=== PATIENT | female | born 1970 | race Caucasian/White ===

== ENCOUNTER 2020-09-01 11:30 | Outpatient (REF) | payer MEDICARE, SELFPAY ==
[2020-09-01 14:03] LABS: Estimated Average Glucose 134 mg/dL; Hemoglobin A1c % 6.3 %
[2020-09-01 14:09] LABS: Creatinine Urine 205.65 mg/dL; Microalbum/Creatinine Ratio Ur 36.4 ug/mg cr
[2020-09-01 14:11] LABS: Alanine Aminotransferase 35 U/L (0-31); Albumin Level 4.3 g/dL (3.5-5.0); Alkaline Phosphatase 72 U/L (39-117); Anion Gap 12 (12-20); Aspartate Amino Transferase 19 U/L (5-31); Bilirubin Total 0.4 mg/dL (0.0-1.0); Blood Urea Nitrogen 13 mg/dL (9-16); Calcium 9.2 mg/dL (8.4-10.2); Carbon Dioxide 26 mmol/L (22-29); Chloride 105 mmol/L (96-108); Cholesterol 186 mg/dL; Estimated Glomerular Filt Rate > 60; Glucose Fasting 94 mg/dL (60-99); HDL Cholesterol 40 mg/dL; LDL Cholesterol Calculated 116 mg/dl; Potassium 4.9 mmol/L (3.3-5.1); Sodium 138 mmol/L (135-145); Total Protein 7.4 g/dL (6.5-8.0); Triglycerides 153 mg/dL
[2020-09-01 14:31] LABS: TSH reflex Free T4 3.59 uIU/mL (0.32-4.0)
== END 2020-09-01 11:31 | disposition home or self-care (01) ==
LOC: HO.HMGCLDS 11:30
PROVIDERS: PCP Internal Medicine; Visit Provider Internal Medicine
DX: E03.8 Other specified hypothyroidism (principal); E13.9 Other specified diabetes mellitus without complications; E66.9 Obesity, unspecified; E78.9 Disorder of lipoprotein metabolism, unspecified; I10 Essential (primary) hypertension
CPT/HCPCS: 36415; 80053; 80061; 82043; 83036; 84443

== ENCOUNTER → 2022-04-26 13:58 | Outpatient (BNVA) | payer OTHER, SELFPAY | PROVIDERS: PCP Internal Medicine; Visit Provider Psychiatry & Neurology Neurology | DX: Z13.89 Encounter for screening for other disorder (principal) ==

== ENCOUNTER → 2022-05-12 10:49 | Outpatient (REF) | payer OTHER, SELFPAY | LOC: HO.SL 10:49 | PROVIDERS: PCP Internal Medicine; Visit Provider Psychiatry & Neurology Neurology | DX: Z13.89 Encounter for screening for other disorder (principal) ==

== ENCOUNTER 2022-09-07 07:58 | Outpatient (REF) | payer OTHER, SELFPAY ==
--- NOTE | ~2022-09-07 | MR_ITS ---
EXAMINATION: MR BRAIN WITH AND WITHOUT CONTRAST MR CERVICAL SPINE WITH/WITHOUT CONTRAST CLINICAL INFORMATION: MS COMPARISON: MRI brain and cervical spine 03/28/2017 TECHNIQUE: MRI of the brain and cervical spine was obtained using routine sequences with and without contrast. Intravenous contrast: Gadavist Gadavist mL. FINDINGS: BRAIN: While the overall significant burden of demyelinating disease throughout the supratentorial brain parenchyma appears stable there is a 5 mm somewhat ovoid region of enhancement within the left centrum semiovale suspicious for a focus of active demyelination (image 20, series 21). Redemonstration corresponding T1 hypointense signal associated with the majority of the chronic demyelinating plaques. Redemonstrated apparent asymmetric T2 hyperintensity within the left aspect of the optic chiasm which may reflect sequelae of prior optic neuritis, noting limited assessment on this nondedicated examination. Multiple posterior fossa T2 hyperintense lesions are again seen with a new lesion in the left mohit (image 8, series 9). Stable moderate global cerebral volume loss and diffuse marked thinning of the corpus callosum. Stable mild cerebellar atrophy. No acute infarct. No acute intracranial hemorrhage or extra-axial fluid collection. No significant mass effect or herniation pattern. Normal enhancement of the dural venous sinuses. Normal appearance of the intracranial arterial flow voids. Normal appearance of the midline structures. The orbits are grossly unremarkable. The paranasal sinuses and mastoids are well aerated. Small volume adenoidal tonsillar tissue within the midline nasopharynx. Normal marrow signal. CERVICAL SPINE: There is a new short segment demyelinating plaque within the dorsal/central cord at C2-C3 which may be slightly expansile. Motion artifact limits assessment for additional cord signal abnormality elsewhere and apparent intramedullary T2 hyperintensity in the left cord at C4 and dorsal cord at T1 may be artifactual in etiology. No intramedullary enhancement suggest active demyelination. No leptomeningeal enhancement within limitations of motion artifact. The craniocervical junction is intact. Straightening of the normal cervical lordosis. There is no significant spondylolisthesis. Vertebral body heights are maintained. There is no suspicious enhancing osseous lesion. Multilevel disc desiccation with preserved disc height. There are multilevel degenerative changes with level by level detail as follows: C2-C3: Minor uncovertebral spurring and mild bilateral facet hypertrophy. No spinal canal or neural foraminal narrowing. C3-C4: Shallow central disc protrusion with minor uncovertebral spurring and mild bilateral facet hypertrophy. Stable mild spinal canal narrowing and contact along the ventral midline cord. Stable minimal right without left neural foraminal encroachment. C4-C5: Disc osteophyte complex with increased size of superimposed central disc protrusion, minor uncovertebral spurring and mild bilateral facet hypertrophy. Increased mild spinal canal narrowing and ventral cord indentation. No neural foraminal stenosis. C5-C6: Disc osteophyte complex with bilateral uncovertebral joint hypertrophy and mild bilateral facet hypertrophy. Stable mild spinal canal and mild left greater than right neural foraminal narrowing. C6-C7: Annular disc bulge with left greater than right uncovertebral joint hypertrophy and mild bilateral facet hypertrophy. No spinal canal stenosis. Stable mild bilateral neural foraminal encroachment. C7-T1: No spinal canal or neural foraminal stenosis. No epidural fluid collection, mass, or hematoma. No significant abnormalities of the paraspinal musculature. The flow voids of the major cervical vessels are maintained. Retropharyngeal course of the bilateral internal carotid arteries. No demonstrated abnormalities in the visualized neck. MR/MR cervical spine wo/w con IMPRESSION: 1. While the overall significant burden of demyelinating disease throughout the supratentorial brain parenchyma appears stable there is a 5 mm somewhat ovoid region of enhancement within the left centrum semiovale suspicious for a focus of active demyelination. Mildly progressed infratentorial demyelinating disease. 2. Redemonstrated apparent asymmetric T2 hyperintensity within the left aspect of the optic chiasm which may reflect sequelae of prior optic neuritis, noting limited assessment on this nondedicated examination. 3. New possibly slightly expansile demyelinating plaque at C2-C3. No intramedullary enhancement suggest active demyelination. Additional new apparent areas of intramedullary signal abnormality in the cervicothoracic cord may be artifactual in etiology. 4. Multilevel cervical spondylosis with increased size of a central disc protrusion at C4-C5 resulting in increased mild spinal canal stenosis and ventral cord indentation.
== END 2022-09-07 07:59 | disposition home or self-care (01) ==
LOC: HO.MRI 07:58
PROVIDERS: PCP Internal Medicine; Visit Provider Psychiatry & Neurology Neurology
DX: G35 Multiple sclerosis (principal)
CPT/HCPCS: 70553; 72156; A9585

== ENCOUNTER → 2022-09-22 10:41 | Outpatient (BNVA) | payer OTHER, SELFPAY | PROVIDERS: PCP Internal Medicine; Visit Provider Psychiatry & Neurology Neurology ==

== ENCOUNTER 2022-09-26 13:27 | Outpatient (REF) | payer MEDICARE, MEDICAID, SELFPAY | END 2022-09-26 13:28 | disposition home or self-care (01) | LOC: HO.MDS 13:27 | PROVIDERS: Visit Provider Psychiatry & Neurology Neurology | DX: G35 Multiple sclerosis (principal) | CPT/HCPCS: 96374; J2930 ==

== ENCOUNTER 2022-09-27 10:18 | Outpatient (REF) | payer MEDICARE, MEDICAID, SELFPAY | END 2022-09-27 10:19 | disposition home or self-care (01) | LOC: HO.MDS 10:18 | PROVIDERS: Visit Provider Psychiatry & Neurology Neurology | DX: G35 Multiple sclerosis (principal) | CPT/HCPCS: 96365; J2930 ==

== ENCOUNTER 2022-09-28 07:55 | Outpatient (REF) | payer MEDICARE, MEDICAID, SELFPAY | END 2022-09-28 07:56 | disposition home or self-care (01) | LOC: HO.MDS 07:55 | PROVIDERS: Visit Provider Psychiatry & Neurology Neurology | DX: G35 Multiple sclerosis (principal) | CPT/HCPCS: 96365; J2930 ==

== ENCOUNTER 2022-09-29 06:26 | Outpatient (REF) | payer MEDICARE, MEDICAID, SELFPAY | END 2022-09-29 06:27 | disposition home or self-care (01) | LOC: HO.MDS 06:26 | PROVIDERS: Visit Provider Psychiatry & Neurology Neurology | DX: G35 Multiple sclerosis (principal) | CPT/HCPCS: 96365; J2930 ==

== ENCOUNTER 2022-09-30 06:26 | Outpatient (REF) | payer MEDICARE, MEDICAID, SELFPAY | END 2022-09-30 06:27 | disposition home or self-care (01) | LOC: HO.MDS 06:26 | PROVIDERS: Visit Provider Psychiatry & Neurology Neurology | DX: G35 Multiple sclerosis (principal) | CPT/HCPCS: 96365; J2930 ==

== ENCOUNTER 2022-10-10 11:05 | Outpatient (AMB) | payer MEDICARE, SELFPAY ==
[2022-10-10 11:08] VITALS: BP 140/92; PULSE 84; O2SAT 98; BMI 38.6
--- NOTE | 2022-10-10 11:08 | MHC.OFFVIS ---
Intake Vital Signs 10/10/22 11:08 Height 5 ft 4 in Weight 225 lb BMI 38.6 BP 140/92 H Blood Pressure Location Rt brachial Position Sitting Pulse 84 Pulse Source Pulse Oximeter Pulse Oximetry (%) 98 Oxygen Delivery Method Room Air Intake Visit Reasons: f/u appointment -missed last appt Intake Note: Pt presents today for a follow up appt. Pt states her balance is all over the map . She states she is very tired due to her not sleeping well during the night. Pt states she only gets about 5 hours of sleep a night. She states she is very depressed as well. 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 she reports her balance is still off . SHe did not go to her appointments at [facility]. Previous History-she was diagnosed with Multiple sclerosis by Dr. Sharp in 2005. She had left leg weakness for 2 days - Brain MRI showed demyelinating changes. she was started copaxone . she was seen by a neurologist in [place] in 2014.she stopped copaxone in 2014 due to financial difficulties. Her history is unclear about the episodes. she has h/o vertigo , diplopia. she reports weakness, numbness , tingling. she has trouble falling asleep, staying asleep, hypersomnia. In the past she had some urinary issues. Her balance is poor and she walks with a cane. Her last MRI was more than 2 years ago [facility] Medical History Cervical spondylosis Hypersomnia Insomnia Surgical History History of section Family History Father No problems noted. Mother Lung cancer Family/Other Multilevel scoliosis Other Mental health disorder Social History Housing: House Alcohol intake: never Patient Tobacco Use Status: Never used Tobacco Second Hand Smoke Exposure: No Current occupational status: disabled Cognitive needs: No Hearing needs: No Vision needs: No Physical Exam Vital Signs: Last Vital Signs Pulse 84 10/10/22 11:08 BP 140/92 H 10/10/22 11:08 Pulse Ox 98 10/10/22 11:08 Oxygen Delivery Method Room Air 10/10/22 11:08 BMI result Body Mass Index 38.6 Const General: cooperative and in distress Orientation/consciousness: patient oriented x3 Eyes Pupils: Equal, round and reactive pupils present Neuro Other: normal speech General: patient oriented x3 Cranial nerves: Yes Facial sensation intact/muscles of mastication intact, Yes Equal, round and reactive pupils present, Yes Bilaterally intact EOM present, Yes Nystagmus not present, Yes Normal facial strength present and Yes Midline tongue present Cognition (Neuro): normal cognition Gait exam (Neuro): Ataxic gait present Motor exam (neuro): Normal motor muscle tone present throughout Deep tendon reflexes (DTR's): Right triceps reflex intensity grade: 2+, Left triceps reflex intensity grade: 2+, Rt Biceps (C5, C6): 2+, Left biceps reflex intensity grade: 2+, Right brachioradialis reflex intensity grade: 2+, Left brachioradialis reflex intensity grade: 2+, Right patellar reflex intensity grade: 2+ and Left patellar reflex intensity grade: 2+ Coordination: [id number] test normal Psych Appearance: grossly normal Assessment & Plan Assessment & Plan (1) Multiple sclerosis: Code(s): G35 - Multiple sclerosis (2) Insomnia: Code(s): G47.00 - Insomnia, unspecified (3) Hypersomnia: Code(s): G47.10 - Hypersomnia, unspecified (4) Cervical spondylosis: Code(s): M47.812 - Spondylosis without myelopathy or radiculopathy, cervical region Plan MRI C spine and Brain reviewed with patient I will start her on aubagio 7 mg qd for 4 weeks and then increase it to 14 mg qd [facility] in [place] for further management of MS. Home sleep test results Medications: New teriflunomide (Aubagio) 7 mg PO DAILY 30 tabs 0RF Coding Level of Care Code Est Pt Level 4 (25495) Diagnoses Multiple sclerosis G35 Insomnia G47.00 Hypersomnia G47.10 Cervical spondylosis M47.812
== END 2022-10-10 11:41 | disposition home or self-care (01) ==
PROVIDERS: PCP Internal Medicine; Visit Provider Psychiatry & Neurology Neurology
DX: G35 Multiple sclerosis (principal); G47.00 Insomnia, unspecified; G47.10 Hypersomnia, unspecified; M47.812 Spondylosis without myelopathy or radiculopathy, cervical region
CPT/HCPCS: 99214

== ENCOUNTER → 2022-10-10 11:05 | Outpatient (BNVA) | payer MEDICARE, SELFPAY | PROVIDERS: PCP Internal Medicine; Visit Provider Psychiatry & Neurology Neurology | DX: G35 Multiple sclerosis (principal); G47.00 Insomnia, unspecified; G47.10 Hypersomnia, unspecified; M47.812 Spondylosis without myelopathy or radiculopathy, cervical region | CPT/HCPCS: 99212 ==

== ENCOUNTER 2023-12-14 14:03 | Outpatient (AMB) | payer MEDICARE, SELFPAY ==
--- NOTE | 2023-12-14 14:16 | AM.OFFWIN_ITS ---
Intake Vital Signs 12/14/23 14:22 Height 5 ft 3 in Weight 232 lb BMI 41.1 BP 122/84 Blood Pressure Location Lt brachial Position Sitting Pulse 62 Pulse Source Pulse Oximeter Temp 98.8 F Temp Source Oral Pulse Oximetry (%) 98 Oxygen Delivery Method Room Air Intake Visit Reasons: EP cough, fever, congestion Intake Note: Patient here for cough, congestion and fevers which started about 2 days ago. Patient Tobacco Use Status: Never used Tobacco Allergies No Known Allergies Allergy (Verified 12/14/23 14:23) Do you need a note to return to daycare/school/sports/work: No HPI HPI Comments History of Present Illness Details This is a 53-year-old female with a past medical history of multiple sclerosis presenting for evaluation of cough, sinus congestion, sore throat and subjective fevers that she has had for the past 2 days. Patient denies having any otalgia, shortness for breath, chest pain or abdominal pain. Patient has been taking Motrin [id number] for relief of her symptoms. Additionally, she denies having any sick contacts. [facility] Medical History Cervical spondylosis Hypersomnia Insomnia Surgical History History of section Family History Father No problems noted. Mother Lung cancer Family/Other Multilevel scoliosis Other Mental health disorder Social History Housing: House Alcohol intake: never Patient Tobacco Use Status: Never used Tobacco Second Hand Smoke Exposure: No Current occupational status: disabled Cognitive needs: No Hearing needs: No Vision needs: No Review of Systems Const Reports as per HPI, Denies chills, Reports fatigue and Reports fever(s) (Subjective) Eyes Reports no additional complaints ENT Denies dizziness, Denies otalgia, Reports nasal congestion, Denies sinus pain, Reports sinus pressure, Reports sore throat and Denies tongue swelling Card Reports no additional complaints and Denies dyspnea Resp Denies chest congestion, Reports cough, Denies pain with cough and Denies dyspnea GI Reports no additional complaints Reports no additional complaints Musc Reports myalgias Skin/Breast Reports system reviewed and no additional complaints, except as documented Neuro Reports no additional complaints and Denies dizziness Psych Reports no additional complaints Endo Reports fatigue Luis Miguel/Lymph Reports no additional complaints Aller/Immun Denies tongue swelling Physical Exam Vital Signs: Last Vital Signs Temp 98.8 F 12/14/23 14:22 Pulse 62 12/14/23 14:22 BP 122/84 12/14/23 14:22 Pulse Ox 98 12/14/23 14:22 Oxygen Delivery Method Room Air 12/14/23 14:22 BMI result Body Mass Index 41.1 Patient is afebrile. Const General: cooperative, healthy appearing, comfortable, no acute distress, well developed, alert and awake Nutritional Appearance: overweight Orientation/consciousness: patient oriented x3 Limitations: no limitations HEENT Head: Yes normal to inspection and Yes normocephalic Ears: hearing grossly normal bilaterally, external ears normal, TM's normal bilaterally and EAC's normal General nose exam: Normal external nose present Face and sinus: Yes normal facial exam and No sinus tenderness Mouth: Normal oral and palatal mucosa present and oropharynx normal Throat: Yes posterior oropharynx normal Eyes General: appearance normal, both eyes and all related structures Visual Wren: normal visual wren by confrontation Alignment and Position: alignment normal Periorbital: periorbital findings normal Eyelids: Yes eyelids normal Conjunctivae: conjunctivae normal Sclerae: sclerae normal Corneas: corneas normal Pupils: Equal, round and reactive pupils present EOM: EOMs intact bilaterally Neck Lymphatic: no lymphadenopathy noted Resp Effort & Inspection: normal respiratory effort, able to speak in complete sentences, abnormal respiratory pattern, no cough and no respiratory distress Auscultation: clear to auscultation bilaterally Cardio Rate: regular rate Rhythm: regular rhythm Skin General skin exam: no rashes or lesions noted Neuro General: patient oriented x3 Cranial nerves: Yes Equal, round and reactive pupils present Psych Appearance: grossly normal Mental Status: mental status grossly normal Insight: Good insight present (Psych) Judgement: Good judgement present (Psych) Assessment & Plan Assessment & Plan (1) Acute upper respiratory infection: Comment: Patient is afebrile and is not hypoxic. Chest x-ray will be deferred at this time. SARS testing is initiated and results are pending. Code(s): J06.9 - Acute upper respiratory infection, unspecified Plan: Tylenol or ibuprofen as needed for any fevers that recur as well as myalgias. Patient is encouraged to stay very well hydrated upon returning home. Orders: Orders SARS-CoV2/FLU/RSV Today J06.9 - Acute upper respiratory infection, unspecified Coding Level of Care Code Est Pt Level 3 (54969) Diagnoses Acute upper respiratory infection J06.9 Time Spent (min) 20
[2023-12-14 14:22] VITALS: BP 122/84; PULSE 62; TEMP 37.1; O2SAT 98; BMI 41.1
== END 2023-12-14 14:41 | disposition home or self-care (01) ==
PROVIDERS: PCP Internal Medicine; Visit Provider Physician Assistant
DX: J06.9 Acute upper respiratory infection, unspecified (principal)

== ENCOUNTER 2023-12-14 14:03 | Outpatient (REF) | payer MEDICARE, SELFPAY ==
[2023-12-14 18:51] LABS: Influenza A PCR NEGATIVE (Negative); Influenza B PCR NEGATIVE (Negative); Resp Syncy Virus RNA Qual PCR NEGATIVE (Negative); SARS COV2 PCR INHOUSE NEGATIVE (Negative)
== END 2023-12-14 14:04 | disposition home or self-care (01) ==
LOC: HO.LAB 14:03
PROVIDERS: PCP Internal Medicine; Visit Provider Physician Assistant
DX: J06.9 Acute upper respiratory infection, unspecified (principal)
CPT/HCPCS: 0241U; 99212

== ENCOUNTER 2024-03-07 11:27 | Emergency (ER) | payer MEDICARE, SELFPAY ==
--- NOTE | ~2024-03-07 | CT_ITS ---
EXAMINATION: CT HEAD WITHOUT CONTRAST CLINICAL INFORMATION: Left-sided weakness, history of MS. COMPARISON: No prior CT exam. Correlation made with numerous prior brain MRIs, most recently 08/08/2022. TECHNIQUE: Contiguous axial imaging was performed from the skull base to vertex without intravenous administration of contrast. This CT examination was performed using dose optimization techniques as appropriate, variously including the following: *Automated exposure control *Adjustment of mA and/or kV according to patient size (this includes techniques or standardized protocols for targeted exams where dose is matched to indication/reason for exam; i.e. extremities or head) *Use of iterative reconstruction technique FINDINGS: There is no evidence of intracranial hemorrhage or extra-axial fluid collection. There is no mass effect, or edema. No CT evidence of acute territorial infarct. Ventricles, sulci, and cisterns are diffusely prominent, reflecting age-related advanced cerebral and cerebellar atrophy. No hydrocephalus. No midline shift. There is diffuse atrophy of the corpus callosum. There is atrophy of the mohit and midbrain. Extensive predominantly periventricular patchy and confluent white matter hypodensities, in keeping with patient's known demyelination. Distribution appears similar to the most recent MR. Partial empty sella noted. Mild atheromatous calcification of the bilateral carotid siphons. Globes and orbital contents image normally. No extracranial soft tissue abnormalities. The paranasal sinuses, mastoid air cells, and tympanic cavities are normally aerated. No suspicious bony abnormalities. CT/CT head/brain wo IV con IMPRESSION: 1. No acute intracranial abnormalities. 2. Stable chronic findings as discussed, consistent with the patient's known demyelinating disease. 3. Age advanced cerebral, callosal, and posterior fossa atrophy. Electronically signed by: Gerhard Khalil MD 03/07/2024 01:47 PM [facility]
[2024-03-07 12:36] VITALS: BP 200/99; PULSE 88; RESP 18; TEMP 36.4; O2SAT 96; BMI 27.5
--- NOTE | 2024-03-07 12:38 | ED.GENADULT ---
HPI - General Adult General Stated complaint: l sided weakness Related Data Allergies Allergy/AdvReac Type Severity Reaction Status Date / Time No Known Allergies Allergy Verified 03/07/24 12:43 [facility] Past Medical History Medical History Cervical spondylosis Hypersomnia Insomnia Surgical History History of section Family History Family History Father No problems noted. Mother Lung cancer Family/Other Multilevel scoliosis Other Mental health disorder Social History Social History Housing: House Alcohol intake: never Patient Tobacco Use Status: Never used Tobacco Second Hand Smoke Exposure: No Current occupational status: disabled Cognitive needs: No Hearing needs: No Vision needs: No Course Course Course Narrative: RME, this is a rapid medical exam performed by Rubin Doherty please refer to primary provider for complete H&P- 53-year-old female with past medical history significant for multiple sclerosis with chronic left-sided weakness presents for evaluation of worsening left-sided weakness. Patient states that her symptoms have been worsening over last 3 days she reports mild slurred speech. She does have mild dysarthria on exam. She recently she had a new medication called Kesimpta. Clinically she has an NIH stroke score of 1 due to dysarthria. She was greater than 72 hours since the onset of her symptoms, a stroke alert will not be called but I will still order a CT scan of her head and labs. Clinically MS exacerbation is a much more likely diagnosis Discharge Plan Discharge Print Language: Trinidadian
[2024-03-07 14:08] LABS: MANUAL DIFF FLAG NO
[2024-03-07 14:09] LABS: Basophils Percent Auto 0.3 % (0-2); Eosinophils Absolute Auto 0.1 X10*3/uL (0.0-0.4); Eosinophils Percent Auto 0.8 % (0-4); Hematocrit 36.7 % (37.0-47.0); Hemoglobin 12.2 g/dl (12.0-16.0); Imm Gran Abs Auto 0.03 X10*3/uL (0.00-0.03); Imm Gran Pct Auto 0.3 % (0.0-0.4); Lymphocytes Absolute Auto 2.3 X10*3/uL (1.2-4.9); Lymphocytes Percent Auto 25.9 % (20-40); Mean Corpuscular HGB Conc 33.2 g/dl (31.0-35.0); Mean Corpuscular Hemoglobin 26.8 pg (27.0-33.0); Mean Corpuscular Volume 80.7 fL (80.0-98.0); Mean Platelet Volume 10.9 fL (9.4-12.3); Monocytes Absolute Auto 0.4 X10*3/uL (0.1-1.2); Monocytes Percent Auto 4.7 % (2-11); Platelet Count 266 X10*3/uL (160-400); Red Blood Count 4.55 X10*6/uL (4.20-5.50); Red Cell Distribution Width 14.9 % (11.0-16.0); White Blood Count 8.9 X10*3/uL (4.8-10.8)
[2024-03-07 14:17] LABS: Partial Thromboplastin Time 31.6 SEC (26.0-36.8)
[2024-03-07 14:25] LABS: Alkaline Phosphatase 83 U/L (39-117); Anion Gap 8 (12-20); Aspartate Amino Transferase 31 U/L (5-31); Bilirubin Total 0.3 mg/dL (0.0-1.0); Blood Urea Nitrogen 9 mg/dL (9-16); Calcium 9.1 mg/dL (8.4-10.2); Carbon Dioxide 30 mmol/L (22-29); Chloride 110 mmol/L (96-108); Estimated Glomerular Filt Rate > 60; Glucose Random 114 mg/dL (60-115); Lipase 21 U/L (8-78); Potassium 3.5 mmol/L (3.3-5.1); Sodium 144 mmol/L (135-145); Total Protein 7.3 g/dL (6.5-8.0)
[2024-03-07 14:35] LABS: Appearance Urine Cloudy; Color Urine Yellow; Glucose Urine UA Negative (Negative); Leukocyte Esterase Urine Moderate (2+) (Negative); Nitrite Urine Positive (Negative); Specific Gravity - Urine 1.015 (1.005-1.025); UMIC TRIGGER UACC YES; Urine Blood Negative (Negative); Urine Ketones Negative (Negative); Urine Protein 30 (1+) mg/dL (Neg-Trace)
[2024-03-07 14:37] LABS: Bacteria Urine 4+ (None Seen); Hyaline Casts Urine 0-2 /LPF (0-2); RBC Urine 0-2 /HPF (0-2); UACC Culture Trigger YES; WBC Urine 21-50 /HPF (0-5)
[2024-03-07 14:38] LABS: Alanine Aminotransferase 37 U/L (0-31)
[2024-03-07 14:47] LABS: Influenza A PCR NEGATIVE (Negative); Influenza B PCR NEGATIVE (Negative); Resp Syncy Virus RNA Qual PCR NEGATIVE (Negative); SARS COV2 PCR INHOUSE NEGATIVE (Negative)
== END 2024-03-07 19:11 | disposition left against medical advice (07) ==
PROVIDERS: Physician Assistant; Emergency Provider Emergency Medicine; PCP Internal Medicine
DX: R53.1 Weakness (principal); Z53.21 Procedure and treatment not carried out due to patient leaving prior to being seen by health care provider; G35 Multiple sclerosis; R47.81 Slurred speech; R47.1 Dysarthria and anarthria; Z23 Encounter for immunization
CPT/HCPCS: 0241U; 36415; 70450; 80053; 81001; 83690; 85025; 85730; 87086; 87088; 87186; 99281; 99282; 99284

== ENCOUNTER → 2024-03-07 12:42 | Outpatient (BNV) | payer MEDICARE, SELFPAY | PROVIDERS: PCP Internal Medicine; Visit Provider Radiology Diagnostic Radiology | DX: G35 Multiple sclerosis (principal) | CPT/HCPCS: 70450 ==

== ENCOUNTER 2024-03-08 13:19 | Outpatient (AMB) | payer MEDICARE, SELFPAY ==
--- NOTE | 2024-03-08 13:22 | MHC.OFFWIV ---
Intake Vital Signs 03/08/24 13:29 Weight 110.847 kg BP 150/100 H Blood Pressure Location Rt brachial Position Sitting Pulse 89 Pulse Source Pulse Oximeter Pulse Oximetry (%) 99 Oxygen Delivery Method Room Air Intake Visit Reasons: EP high bp ? Can't smile? MS acting up Patient Tobacco Use Status: Never used Tobacco Allergies No Known Allergies Allergy (Verified 03/07/24 12:43) HPI HPI Comments History of Present Illness Details 53 yo f hx of ms, depression, presents for left sided facial droop, slurred speach and feeling unwell worsening since yesterday. Reports she went to [facility] ed and she had a head scan done which was negative no CTA. Facial droop is new as of this morning. She doesnt feel right and her L side feels heavy PE L sided facial droop issues w/ word finding and L sided weakness Hx and pe concerning for guillian barre vs lvo vs stroke vs MS flare Plan- ED via ambulance Spoke to Dr. Moran for expect [facility] Medical History Cervical spondylosis Hypersomnia Insomnia Surgical History History of section Family History Father No problems noted. Mother Lung cancer Family/Other Multilevel scoliosis Other Mental health disorder Social History Housing: House Alcohol intake: never Patient Tobacco Use Status: Never used Tobacco Second Hand Smoke Exposure: No Current occupational status: disabled Cognitive needs: No Hearing needs: No Vision needs: No Physical Exam Vital Signs: Last Vital Signs Pulse 89 03/08/24 13:29 BP 150/100 H 03/08/24 13:29 Pulse Ox 99 03/08/24 13:29 Oxygen Delivery Method Room Air 03/08/24 13:29 vss Appearance: Alert.? Oriented X3.? No acute distress.? Head: Normocephalic, no step-offs or deformities. + left sided facial droop, aphasia Eyes: Pupils equal, round and reactive to light. Neck: Normal inspection.? Neck supple.? CVS: Normal heart rate and rhythm.? Pulses normal.? Respiratory: No respiratory distress.? Breath sounds normal.? Abdomen: Soft and nontender.? Skin: Skin warm and dry.? Normal skin color.? Normal skin turgor.? Extremities: No lower extremity edema.? No calf ttp. 5/5 strength to RUQ and RLE and 4/5 to LUE and LLE Neuro: Oriented X 3.? No motor deficit.? No sensory deficit Assessment & Plan Assessment & Plan (1) Left-sided weakness: Code(s): R53.1 - Weakness Plan Ed Spoke to Dr. Moran Coding Level of Care Code Est Pt Level 3 (24073) Diagnoses Left-sided weakness R53.1
[2024-03-08 13:29] VITALS: BP 150/100; PULSE 89; O2SAT 99
== END 2024-03-08 14:17 | disposition home or self-care (01) ==
PROVIDERS: PCP Internal Medicine; Visit Provider Physician Assistant
DX: R53.1 Weakness (principal)

== ENCOUNTER → 2024-03-08 13:19 | Outpatient (BNVA) | payer MEDICARE, SELFPAY | PROVIDERS: PCP Internal Medicine; Visit Provider Physician Assistant ==

== ENCOUNTER 2024-03-08 14:07 | Emergency (ER) | payer MEDICARE, SELFPAY ==
--- NOTE | ~2024-03-08 | CT_ITS ---
EXAMINATION: CT ANGIOGRAM HEAD AND NECK CLINICAL INFORMATION: History of MS. Right-sided facial droop. COMPARISON: Noncontrast head CT dated prior day. No prior CT angiography. MRI of the brain 09/07/2022. TECHNIQUE: Noncontrast axial imaging of the head was performed. This was followed by test bolus sequences and head and neck intravenous bolus administration 70 mL of Omnipaque 350 contrast. Helical imaging was performed in the axial plane from the aortic arch to the skull vertex. A [address] head was also obtained. The data was processed at the electromechanical technologist's workstation for generation of MIP sequences. Angled MIPs and volume rendered reformatted images were also generated at an offline 3D workstation. Stenoses are assessed in accordance with NASCET criteria unless otherwise indicated. This CT examination was performed using dose optimization techniques as appropriate, variously including the following: *Automated exposure control *Adjustment of mA and/or kV according to patient size (this includes techniques or standardized protocols for targeted exams where dose is matched to indication/reason for exam; i.e. extremities or head) *Use of iterative reconstruction technique FINDINGS: NONCONTRAST HEAD CT: There is no evidence of intracranial hemorrhage or extra-axial fluid collection. There is no mass effect, or edema. No CT evidence of acute territorial infarct. Ventricles, sulci, and cisterns are diffusely prominent, reflecting age-related advanced cerebral and cerebellar atrophy. No hydrocephalus. No midline shift. There is diffuse atrophy of the corpus callosum. There is atrophy of the mohit and midbrain. Extensive predominantly periventricular patchy and confluent white matter hypodensities, in keeping with patient's known demyelination. Distribution appears similar to the most recent MR. Partial empty sella noted. Mild atheromatous calcification of the bilateral carotid siphons. Globes and orbital contents image normally. No extracranial soft tissue abnormalities. The paranasal sinuses, mastoid air cells, and tympanic cavities are normally aerated. No suspicious bony abnormalities. NECK CTA: -AORTIC ARCH: Normal. -GREAT VESSEL ORIGINS: Patent. Three-vessel branching pattern. -RIGHT COMMON CAROTID ARTERY: Normal in course and caliber to the level of the bifurcation. -CERVICAL RIGHT INTERNAL CAROTID ARTERY: Mild calcific atherosclerotic disease of the carotid bulb and proximal internal carotid artery without flow-limiting stenosis. -LEFT COMMON CAROTID ARTERY: Normal in caliber. Distal course is retropharyngeal. -CERVICAL LEFT INTERNAL CAROTID ARTERY: Mild calcific atherosclerotic disease of the carotid bulb and proximal internal carotid artery without flow-limiting stenosis. -CERVICAL RIGHT VERTEBRAL ARTERY: Codominant. Normal origin, and normal in course and caliber into the skull base. -CERVICAL LEFT VERTEBRAL ARTERY: Codominant. Normal origin, and normal in course and caliber into the skull base. OTHER, SOFT TISSUES: -No lymphadenopathy, or mass. -Normal thyroid. -Lung apices clear within confines of expiratory state. CTA OF THE BRAIN: -INTRACRANIAL INTERNAL CAROTID ARTERIES: Minimal calcific atherosclerotic disease of the intracranial internal carotid arteries without occlusion or flow-limiting stenosis. -RIGHT ANTERIOR CEREBRAL ARTERY: Normal A1 segment. Normal arborization of the distal segments. -LEFT ANTERIOR CEREBRAL ARTERY: Normal A1 segment. Normal arborization of the distal segments. -ANTERIOR COMMUNICATING ARTERY: Normal. -RIGHT MIDDLE CEREBRAL ARTERY: Normal M1 segment of the MCA without focal stenosis or occlusion. Normal arborization of the distal segments. -LEFT MIDDLE CEREBRAL ARTERY: Normal M1 segment of the MCA without focal stenosis or occlusion. Normal arborization of the distal segments. -RIGHT VERTEBRAL ARTERY V4: Normal in course and caliber. Patent PICA branch. -LEFT VERTEBRAL ARTERY V4: Normal in course and caliber. Patent PICA branch. -BASILAR ARTERY: Normal without focal stenosis or occlusion. Normal appearance of the proximal superior cerebellar arteries. Normal basilar tip. -RIGHT POSTERIOR CEREBRAL ARTERY: Normal P1 segment. Normal opacification of the distal LOGISTICS OPERATIONS MANAGER segments. -LEFT POSTERIOR CEREBRAL ARTERY: Normal P1 segment. Normal opacification of the distal LOGISTICS OPERATIONS MANAGER segments. -POSTERIOR COMMUNICATING ARTERIES: Diminutive bilaterally. Normal opacification of the superior sagittal, straight, transverse, and sigmoid sinuses. No venous thrombosis. CT/CT angio head neck IMPRESSION: 1. Noncontrast head CT demonstrating no evidence of acute hemorrhage, acute territorial infarct, mass effect, or gross edema. Stable appearing chronic white matter findings of demyelination. No change from CT head dated prior day. 2. CT angiography of the head and neck demonstrating no arterial occlusion, significant stenosis, dissection, or aneurysm. 3. Ancillary findings as discussed in the body of the report. Electronically signed by: Gerhard Khalil MD 03/08/2024 05:01 PM [facility]
--- NOTE | 2024-03-08 14:12 | ECG_ITS ---
Test Reason : WEAKNESS Blood Pressure : */* mmHG Vent. Rate : 81 BPM Atrial Rate : 81 BPM P-R Int : 168 ms QRS Dur : 92 ms QT Int : 446 ms P-R-T Axes : 20 82 18 degrees QTcB Int : 518 ms Normal sinus rhythm Possible Anterior infarct , age undetermined Prolonged QT Abnormal ECG No previous ECGs available Referred By: Paula Moran Electronically Signed By: ZACARIAS PAGAN MD
[2024-03-08 14:17] VITALS: BP 146/87; PULSE 90; O2SAT 99
[2024-03-08] MEDS: predniSONE 20 MG TABLET 60 MG PO (14:54)
[2024-03-08] MEDS: valACYclovir HCL 1,000 MG TABLET 1000 MG PO (14:54)
--- NOTE | 2024-03-08 14:55 | ED.NEUROSD ---
HPI - Neuro Symptoms/Deficit General Chief Complaint: Neuro Symptoms/Deficit Stated Complaint: MS - LEFT SIDED FACIAL DROOP, LKWT 1030PM Source: patient, EMS and old records reviewed Mode of arrival: EMS Limitations: no limitations History of Present Illness ED Provider: SAUNDRA HPI Narrative: 53 yo female with PMH of lipid disorder, hypothyroidism, HTN, depression, MS follows with Dr. Vidal molina L arm and leg weakness has not started Kesimpta yet, she started to feel a tingle in the R side of her face yesterday and then woke up and her R side of her face is drooped with slurring of words, drooling and inability to fully close the eye. She cannot raise her R eyebrow. She denies any recent trauma, infections, tick bites, rash. She had a normal dry CT head yesterday but LWCT and did have UTI on UA as well. She went to urgent care today and they told her to go back to ED for check up. When she woke up around 8am today her face looked different Onset (ago): day(s) (1) Location: right face History of same: No Severity: moderate Quality: weak and tingling Relieving factors: none Exacerbating factors: none Context: gradual onset On Anticoagulants: No Associated symptoms: denies other symptoms Treatments Prior to Arrival: none Related Data Previous Rx's ?Medication ?Instructions ?Recorded cefuroxime axetil 250 mg tablet 250 mg PO BID 7 days #14 tabs 03/08/24 prednisone 10 mg tablet 10 mg PO DIRECTED #41 tabs 03/08/24 valacyclovir 1 gram tablet 1,000 mg PO TID 7 days #21 tabs 03/08/24 (Valtrex) Allergies Allergy/AdvReac Type Severity Reaction Status Date / Time No Known Allergies Allergy Verified 03/08/24 15:22 Review of Systems Review of Systems: Constitutional : No Fever, No Chills, No Fatigue ENT/Mouth : No sore throat, No Rhinorrhea Eyes: No Eye Pain, No Swelling, No Redness Cardiovascular : No Chest Pain, No SOB, No Dyspnea on Exertion Respiratory : No Cough, No Sputum Gastrointestinal : No Nausea, No Vomiting, No Diarrhea, No abdominal Pain Genitourinary : No Dysuria, No Urinary Frequency, No Hematuria, Musculoskeletal : No joint pain, No Myalgias, No Joint Swelling Skin : No Skin Lesions, No rash Neuro : pos Weakness, pos Numbness, No Dizziness, no Headache Psych : No Anxiety/Panic, No Depression All other systems reviewed and are negative [facility] Past Medical History Attestation statement: The following information was validated with the patient. Source: old records reviewed Medical History Cervical spondylosis Hypersomnia Insomnia Surgical History History of section Family History Family History Father No problems noted. Mother Lung cancer Family/Other Multilevel scoliosis Other Mental health disorder Social History Social History Housing: House Alcohol intake: never Patient Tobacco Use Status: Never used Tobacco Second Hand Smoke Exposure: No Advance Directives: No Advance Directives Information Provided: Yes Do you have a plan to hurt others: No Plan Current occupational status: disabled Cognitive needs: No Hearing needs: No Vision needs: No Physical Exam Vital Signs: Vital Signs: Last Vital Signs Temp 97.8 F 03/08/24 15:20 Pulse 80 03/08/24 15:20 Resp 16 03/08/24 15:20 BP 165/83 H 03/08/24 15:25 Pulse Ox 98 03/08/24 15:20 O2 Del Method Room Air 03/08/24 15:20 BMI result Body Mass Index 28.5 Appearance: Alert. Oriented X3. No acute distress. Eyes: Pupils equal, round and reactive to light. ENT: Pharynx normal. Neck: Normal inspection. Neck supple. CVS: Normal heart rate and rhythm. Pulses normal. Respiratory: No respiratory distress. Breath sounds normal. Abdomen: Soft and nontender. Skin: Skin warm and dry. Normal skin color. Normal skin turgor. Extremities: No lower extremity edema. No calf ttp Neuro: Oriented X 3. chronic L arm and leg weakness, R sided facial droop cannot fully close eye involves her lower and upper face cannot move eyebrow on the right. no rash noted, normal speech Course Course Course Narrative: signed out to Dr. Fonseca pending CTA Medications Administered Discontinued Medications Generic Name Dose Route Start Last Admin Trade Name Freq PRN Reason Stop Dose Admin Prednisone 60 mg 03/08/24 14:37 03/08/24 14:54 Prednisone 20 Mg Tablet PO 03/08/24 14:38 60 mg ONCE ONE Administration Valacyclovir HCl 1,000 mg 03/08/24 14:37 03/08/24 14:54 Valacyclovir Hcl 1,000 Mg Tablet PO 03/08/24 14:38 1,000 mg ONCE ONE Administration Medical Decision Making Medical Decision Making [facility] Narrative: 53 yo female with PMH of lipid disorder, hypothyroidism, HTN, depression, MS follows with Dr. Vidal molina L arm and leg weakness now here with total R sided facial paralysis but otherwise no new neuro findings. She is not toxic and given the prodrom of feeling tingling on R side of face now with inability to close eye and no movement of the eyebrow I suspect this is a more peripheral lesion in nature such as bells palsy, started on steroids and acyclovir Differential Diagnosis Differential Diagnoses: The differential diagnosis associated with the presentation includes suspect bells palsy vs MS CTA to rule out any aneurysm Admission/Observation Consideration of admission/observation: Escalation of care including admission/observation considered if CTA negative would DC home on steroid taper and PO acyclovir Lab Data [facility] Lab Attestation statement: I reviewed the patient's lab results. 03/08/24 15:07 03/08/24 15:07 Labs: Lab Results 03/08/24 03/08/24 Range/Units 15:06 15:07 WBC 8.3 (4.8-10.8) X10*3/uL RBC 4.50 (4.20-5.50) X10*6/uL Hgb 12.1 (12.0-16.0) g/dl Hct 36.0 L (37.0-47.0) % MCV 80.0 (80.0-98.0) fL MCH 26.9 L (27.0-33.0) pg MCHC 33.6 (31.0-35.0) g/dl RDW 14.9 (11.0-16.0) % Plt Count 263 (160-400) X10*3/uL MPV 11.3 (9.4-12.3) fL Immature Gran % (Auto) 0.4 (0.0-0.4) % Neut % (Auto) 69.9 (45-73) % Lymph % (Auto) 24.3 (20-40) % Zavala % (Auto) 4.8 (2-11) % Eos % (Auto) 0.4 (0-4) % Baso % (Auto) 0.2 (0-2) % Lymph # (Auto) 2.0 (1.2-4.9) X10*3/uL Zavala # (Auto) 0.4 (0.1-1.2) X10*3/uL Eos # (Auto) 0.0 (0.0-0.4) X10*3/uL Baso # (Auto) 0.0 (0.0-0.2) X10*3/uL Abs Immat Gran (auto) 0.03 (0.00-0.03) X10*3/uL Absolute Neuts (auto) 5.8 (2.0-8.3) x10*3/uL Absolute Nucleated RBC 0.000 (0.0-0.012) X10*3/uL Nucleated RBC % (auto) 0.0 (0.0-0.2) /100WBC ESR 21 H (0-20) MM/HR PT 12.0 (10.9-12.4) SEC INR 1.0 (0.9-1.1) Sodium 143 (135-145) mmol/L Potassium 3.4 (3.3-5.1) mmol/L Chloride 106 (96-108) mmol/L Carbon Dioxide 29 (22-29) mmol/L Anion Gap 11 L (12-20) BUN 9 (9-16) mg/dL Creatinine 0.53 (0.5-1.4) mg/dL Estim Creat Clear Calc 124.7 Estimated GFR > 60 Random Glucose 119 H (60-115) mg/dL Calcium 8.8 (8.4-10.2) mg/dL Magnesium 1.7 (1.6-2.6) mg/dL Total Bilirubin 0.7 (0.0-1.0) mg/dL Direct Bilirubin 0.2 (0.0-0.5) mg/dL AST 43 H (5-31) U/L ALT 49 H (0-31) U/L Alkaline Phosphatase 77 (39-117) U/L Troponin I High Sens < 2.7 (<3.5-17.0) ng/L C-Reactive Protein 1.03 H (< or = 0.50) mg/dL Total Protein 7.3 (6.5-8.0) g/dL Albumin 4.0 (3.5-5.0) g/dL Lipase 20 (8-78) U/L Influenza Type A (PCR) NEGATIVE (Negative) Influenza Type B (PCR) NEGATIVE (Negative) RSV RNA Qual (PCR) NEGATIVE (Negative) SARS-CoV-2 RNA (RT-PCR) NEGATIVE (Negative) Independent Interpretation I performed an independent interpretation of an: EKG and CT Scan Interpretation: Rate: Rhythm: Hanson: Normal P waves. Normal BATSHEVA. Normal QRS complex. ST T wave : qTC: prior studies: The study has been interpreted contemporaneously by me. . Radiology Impression Discussion of test interpretation with radiology: I have reviewed the radiologist's reading. Independent Historian Clinical information obtained from an independent historian. History obtained from or confirmed by: EMS External Record Review External record reviewed: Outpatient record and Prior outpatient radiology Prescription Management I considered prescription management with: Antiviral, Antibiotic and Other Discharge Plan Discharge Clinical Impression: Gaming's palsy Patient Disposition: Still a Patient Instructions: Urinary Tract Infection in Women (ED), Gaming Palsy (ED) Additional Instructions: you had a urinary tract infection on your recent visit - started on antibiotics get lubricating drops for your eye tape eye closed at night if you notice it will not shut return for any worsening symptoms or concerns follow up with your neurologist next week Prescriptions: New cefuroxime axetil 250 mg tablet 250 mg PO BID 7 Days Qty: 14 0RF valacyclovir [Valtrex] 1 gram tablet 1,000 mg PO TID 7 Days Qty: 21 0RF prednisone 10 mg tablet 10 mg PO DIRECTED Qty: 41 0RF Rx Instructions: see taper instructions 60mg on day 1-5, 40mg on day 6, 30mg on day 7, 20mg on day 8, 10mg on day 9, 5mg on day 10 Referrals: [facility] [place] Neuro/Sleep [Provider Group] Print Language: Syriac
[2024-03-08 15:11] LABS: MANUAL DIFF FLAG NO
[2024-03-08 15:15] LABS: Basophils Percent Auto 0.2 % (0-2); Eosinophils Percent Auto 0.4 % (0-4); Hemoglobin 12.1 g/dl (12.0-16.0); Imm Gran Abs Auto 0.03 X10*3/uL (0.00-0.03); Imm Gran Pct Auto 0.4 % (0.0-0.4); Lymphocytes Percent Auto 24.3 % (20-40); Mean Corpuscular HGB Conc 33.6 g/dl (31.0-35.0); Mean Corpuscular Hemoglobin 26.9 pg (27.0-33.0); Mean Platelet Volume 11.3 fL (9.4-12.3); Monocytes Absolute Auto 0.4 X10*3/uL (0.1-1.2); Monocytes Percent Auto 4.8 % (2-11); Neutrophils Absolute Auto 5.8 x10*3/uL (2.0-8.3); Neutrophils Percent Auto 69.9 % (45-73); Platelet Count 263 X10*3/uL (160-400); Red Cell Distribution Width 14.9 % (11.0-16.0); White Blood Count 8.3 X10*3/uL (4.8-10.8)
[2024-03-08 15:20] VITALS: BP 192/101; PULSE 80; RESP 16; TEMP 36.6; O2SAT 98; BMI 28.5
[2024-03-08 15:25] VITALS: BP 165/83
[2024-03-08 15:39] LABS: Alanine Aminotransferase 49 U/L (0-31); Alkaline Phosphatase 77 U/L (39-117); Anion Gap 11 (12-20); Aspartate Amino Transferase 43 U/L (5-31); Bilirubin Direct 0.2 mg/dL (0.0-0.5); Bilirubin Total 0.7 mg/dL (0.0-1.0); Blood Urea Nitrogen 9 mg/dL (9-16); C Reactive Protein 1.03 mg/dL (< or = 0.50); Calcium 8.8 mg/dL (8.4-10.2); Carbon Dioxide 29 mmol/L (22-29); Chloride 106 mmol/L (96-108); Creatinine Clr Calc Pharmacy 124.7; Estimated Glomerular Filt Rate > 60; Glucose Random 119 mg/dL (60-115); Lipase 20 U/L (8-78); Magnesium 1.7 mg/dL (1.6-2.6); Potassium 3.4 mmol/L (3.3-5.1); Sodium 143 mmol/L (135-145); Total Protein 7.3 g/dL (6.5-8.0)
[2024-03-08 15:45] LABS: Troponin-I High Sensitivity < 2.7 ng/L (<3.5-17.0)
[2024-03-08 15:49] LABS: Erythrocyte Sedimentation Rate 21 MM/HR (0-20)
[2024-03-08 15:54] LABS: Influenza A PCR NEGATIVE (Negative); Influenza B PCR NEGATIVE (Negative); Resp Syncy Virus RNA Qual PCR NEGATIVE (Negative); SARS COV2 PCR INHOUSE NEGATIVE (Negative)
[2024-03-08] MEDS: iohexoL 350 MG/ML 100 ML INFUS..BTL IV (16:14)
[2024-03-08 17:46] VITALS: BP 165/83; PULSE 80; RESP 16; TEMP 36.6; O2SAT 98
[2024-03-11 17:18] LABS: Lyme Abs Screen <0.90 index
== END 2024-03-08 17:48 | disposition home or self-care (01) ==
PROVIDERS: Emergency Provider Emergency Medicine; PCP Internal Medicine
DX: G51.0 Bell's palsy (principal); R94.31 Abnormal electrocardiogram [ECG] [EKG]; M54.2 Cervicalgia; R51.9 Headache, unspecified; Z03.818 Encounter for observation for suspected exposure to other biological agents ruled out; Z51.81 Encounter for therapeutic drug level monitoring; Z79.899 Other long term (current) drug therapy
CPT/HCPCS: 0241U; 36415; 70496; 70498; 80048; 80076; 83690; 83735; 84484; 85025; 85610; 85652; 86140; 86617; 86618; 93005; 99212; 99283; 99284; Q9967

== ENCOUNTER → 2024-03-08 14:12 | Outpatient (BNV) | payer MEDICARE, SELFPAY | PROVIDERS: Emergency Provider Emergency Medicine; PCP Internal Medicine; Visit Provider Internal Medicine Cardiovascular Disease | DX: R94.31 Abnormal electrocardiogram [ECG] [EKG] (principal) | CPT/HCPCS: 93010 ==

== ENCOUNTER → 2024-03-08 14:16 | Outpatient (BNV) | payer MEDICARE, SELFPAY | PROVIDERS: Emergency Provider Emergency Medicine; PCP Internal Medicine; Visit Provider Radiology Diagnostic Radiology | DX: R29.810 Facial weakness (principal); I77.9 Disorder of arteries and arterioles, unspecified | CPT/HCPCS: 70496; 70498 ==

== ENCOUNTER 2024-03-20 11:20 | Outpatient (REF) | payer MEDICARE, SELFPAY ==
[2024-03-20 13:28] LABS: Estimated Average Glucose 143 mg/dL; Hemoglobin A1C 153.2908 umol/L; Hemoglobin A1c % 6.6 % (<6.0); Total Hemoglobin (HGBA1C) 3144.7786 umol/L
[2024-03-20 13:32] LABS: Alanine Aminotransferase 44 U/L (0-31); Albumin Level 3.8 g/dL (3.5-5.0); Alkaline Phosphatase 77 U/L (39-117); Aspartate Amino Transferase 23 U/L (5-31); Bilirubin Direct 0.3 mg/dL (0.0-0.5); Bilirubin Total 0.9 mg/dL (0.0-1.0)
[2024-03-20 13:54] LABS: TSH reflex Free T4 2.06 uIU/mL (0.32-4.0)
== END 2024-03-20 11:21 | disposition home or self-care (01) ==
LOC: HO.HMGCLDS 11:20
PROVIDERS: PCP Internal Medicine; Visit Provider Internal Medicine
DX: Z00.01 Encounter for general adult medical examination with abnormal findings (principal); I10 Essential (primary) hypertension; E13.9 Other specified diabetes mellitus without complications; R79.89 Other specified abnormal findings of blood chemistry; E03.8 Other specified hypothyroidism; G35 Multiple sclerosis; E66.01 Morbid (severe) obesity due to excess calories; F33.1 Major depressive disorder, recurrent, moderate
CPT/HCPCS: 36415; 80076; 83036; 84443; 99212; 99396

== ENCOUNTER 2024-03-20 11:20 | Outpatient (AMB) | payer MEDICARE, SELFPAY ==
--- NOTE | 2024-03-20 11:21 | MHC.PC.OV ---
Vital Signs 03/20/24 11:22 Height 5 ft 4 in Weight 247 lb 4 oz BMI 42.4 BP 138/90 H Blood Pressure Location Lt brachial Position Sitting Pulse 84 Pulse Source Pulse Oximeter Pulse Oximetry (%) 96 Oxygen Delivery Method Room Air Intake Visit Reasons: Annual PE Allergies No Known Allergies Allergy (Verified 03/20/24 11:22) Medication List - Last Reconciled 03/20/24 by Keyon Sharp MD valacyclovir (Valtrex) 1,000 mg PO TID 7 days Tobacco use date assessed: 03/20/24 Dental Screening Dental Screen Date: 03/20/24 Did you have a dental visit in the last 12 months?: No Did you have a dental problem in the last 6 months where you did not have access to dental care?: No Was dental information given to patient?: No HPI Annual PE HPI Details Physical exam appointment - The patient is a 53-year-old female presenting with anxiety and depression. Morbid obesity and MS Currently seeing Dr. Drake neurology for the management of MS Patient was last seen in 2021 by me and then did not come in for follow-up At that time she was seeing a psychiatrist and was taking 100 mg of sertraline for anxiety and lorazepam as well Currently she is seeing no psychiatrist and is taking no medication I am starting her on sertraline 25 mg, these days she is more depressed because 2 of her dogs are terminally ill She also have history of hypothyroidism and currently taking no levothyroxine patient was on 75 mcg before She will have labs done today to monitor that History of diabetes we will add hemoglobin A1c to the labs currently taking no medication for that as well - History of high blood pressure noted, attributed to anxiety but untreated currently. - Multiple Sclerosis impacts mobility, exacerbating depression. Medications - Sertraline (Zoloft) 100mg, stopped due to missed psychiatrist appointments in 2021 - Thyroid medication, previously used in 2021 Problem List - Generalized Anxiety Disorder - Depression - Multiple Sclerosis (MS) - Essential Hypertension - diabetes mellitus - morbid obesity Patient Instructions - Begin sertraline (Zoloft) at 25 mg daily for anxiety and depression management. - Consult with behavior health coordinator for psychiatric care setup. - [facility] a [facility] at [facility]. - Consider scheduling an OBGYN visit. Referral placed - Discuss with a neurologist for MS management and confirm current medication. Dr. Drake - Monitor blood pressure, return for re-evaluation in three weeks. - Obtain thyroid function test at the lab post-visit. Follow-up 3 weeks to go over labs and to increase the dose of sertraline Review of Systems - Psychological: Reports anxiety, difficulty sleeping - Gastrointestinal: Denies nausea, vomiting, diarrhea General: No fever no chills neurological: No headaches no dizziness ear nose throat: No sore throat no hearing difficulty no ear pain cardiovascular: No syncope, no chest pain, no palpitations endocrine: No polyuria polydipsia no heat intolerance genitourinary: No dysuria skin: No new complaints Physical Exam general: No acute distress HEENT: No acute findings neck: Supple respiratory system: Able to talk in full sentences, no audible wheeze no stridor Breast exam benign cardiovascular: S1-S2, blood pressure is a little bit high gastrointestinal: No pain, no nausea, vomiting, diarrhea extremities: No new findings STAFF DEVELOPMENT COORDINATOR: Alert awake oriented x3 motor sensory intact, unsteady on her feet but was able to get on examination table skin: Normal turgor [facility] Medical History Cervical spondylosis Hypersomnia Insomnia Surgical History History of section Family History Father No problems noted. Mother Lung cancer Family/Other Multilevel scoliosis Other Mental health disorder Social History Housing: House Alcohol intake: never Patient Tobacco Use Status: Never used Tobacco e-Cigarette/Vaping Use: Never Used Second Hand Smoke Exposure: No service: No Current occupational status: disabled Cognitive needs: No Hearing needs: No Vision needs: No Questionnaire PHQ-9 Over the last 2 weeks, how often have you been bothered by any of the following problems? 75347 - PHQ-9 Billing: Patient declined-do not bill Source: Developed by Drs. Jagdish Giron, Farheen Martin, Fercho Merrill and colleagues, with an educational bran from [employer]. Thrive Questionnaire Date Thrive assessed: 09/01/20 AUDIT C Alcohol Use Questionnaire (AUDIT-C) 1. How often do you have a drink containing alcohol?: Never 3. How often do you have six or more drinks on one occasion?: Never Total Score: 0 Score Reviewed/Action Taken: Yes Physical exam (Primary Care) Vital Signs: Last Vital Signs Pulse 84 03/20/24 11:22 BP 138/90 H 03/20/24 11:22 Pulse Ox 96 03/20/24 11:22 Oxygen Delivery Method Room Air 03/20/24 11:22 BMI result Body Mass Index 42.4 Tobacco/Smoking Status: Tobacco use Status Tobacco use date assessed 03/20/24 03/20/24 11:25 Patient Tobacco Use Status Never used Tobacco 03/20/24 11:25 e-Cigarette/Vaping Use Never Used 03/20/24 11:25 Thrive Assessment: Date of Thrive Assessment Date Thrive assessed 09/01/20 03/20/24 11:25 Coding Level of Care Code Est Pt Level 4 (75113) Est Pt Prev Care 40-64y(06586) Diagnoses Encounter for general adult medical examination with abnormal findings Z00.01 Essential hypertension I10 Diabetes 1.5, managed as type 2 E13.9 Other specified hypothyroidism E03.8 LFT elevation R79.89 Multiple sclerosis G35 Colon cancer screening Z12.11 Morbid obesity due to excess calories E66.01 Moderate episode of recurrent major depressive disorder F33.1 Active/Remission status: currently active Major depression episode severity: moderate Assessment & Plan Assessment & Plan (1) Encounter for general adult medical examination with abnormal findings: Code(s): Z00.01 - Encounter for general adult medical examination with abnormal findings Category: Medical (2) Essential hypertension: Code(s): I10 - Essential (primary) hypertension Category: Medical (3) Diabetes 1.5, managed as type 2: Code(s): E13.9 - Other specified diabetes mellitus without complications Category: Medical (4) Other specified hypothyroidism: Code(s): E03.8 - Other specified hypothyroidism Category: Medical (5) LFT elevation: Code(s): R79.89 - Other specified abnormal findings of blood chemistry Category: Medical (6) Multiple sclerosis: Code(s): G35 - Multiple sclerosis Category: Medical (7) Colon cancer screening: Code(s): Z12.11 - Encounter for screening for malignant neoplasm of colon Category: Medical (8) Morbid obesity due to excess calories: Code(s): E66.01 - Morbid (severe) obesity due to excess calories Category: Medical (9) Major depression, recurrent: Code(s): F33.9 - Major depressive disorder, recurrent, unspecified Category: Medical Qualifiers: Active/Remission status: currently active Major depression episode severity: moderate Qualified Code(s): F33.1 - Major depressive disorder, recurrent, moderate Plan Physical exam appointment - The patient is a 53-year-old female presenting with anxiety and depression. Morbid obesity and MS Currently seeing Dr. Drake neurology for the management of MS Patient was last seen in 2021 by me and then did not come in for follow-up At that time she was seeing a psychiatrist and was taking 100 mg of sertraline for anxiety and lorazepam as well Currently she is seeing no psychiatrist and is taking no medication I am starting her on sertraline 25 mg, these days she is more depressed because 2 of her dogs are terminally ill She also have history of hypothyroidism and currently taking no levothyroxine patient was on 75 mcg before She will have labs done today to monitor that History of diabetes we will add hemoglobin A1c to the labs currently taking no medication for that as well - History of high blood pressure noted, attributed to anxiety but untreated currently. - Multiple Sclerosis impacts mobility, exacerbating depression. Medications - Sertraline (Zoloft) 100mg, stopped due to missed psychiatrist appointments in 2021 - Thyroid medication, previously used in 2021 Problem List - Generalized Anxiety Disorder - Depression - Multiple Sclerosis (MS) - Essential Hypertension - diabetes mellitus - morbid obesity Patient Instructions - Begin sertraline (Zoloft) at 25 mg daily for anxiety and depression management. - Consult with behavior health coordinator for psychiatric care setup. - Schedule a [facility] at [facility]. - Consider scheduling an OBGYN visit. Referral placed - Discuss with a neurologist for MS management and confirm current medication. Dr. Drake - Monitor blood pressure, return for re-evaluation in three weeks. - Obtain thyroid function test at the lab post-visit. Follow-up 3 weeks to go over labs and to increase the dose of sertraline Orders: Orders TSH reflex Free T4 Today E03.8 - Other specified hypothyroidism, E13.9 - Other specified diabetes mellitus without complications, I10 - Essential (primary) hypertension, R79.89 - Other specified abnormal findings of blood chemistry Liver Panel Today E03.8 - Other specified hypothyroidism, E13.9 - Other specified diabetes mellitus without complications, I10 - Essential (primary) hypertension, R79.89 - Other specified abnormal findings of blood chemistry Hemoglobin A1c Today E13.9 - Other specified diabetes mellitus without complications MM tomosynthesis screening BI Today Z12.31 - Encounter for screening mammogram for malignant neoplasm of breast Referrals PAPER TWISTER TENDER Referral Z01.419 - Encounter for gynecological examination (general) (routine) without abnormal findings Gastroenterology Referral Z12.11 - Encounter for screening for malignant neoplasm of colon Medications: New sertraline (Zoloft) 25 mg PO DAILY 90 tabs 0RF
[2024-03-20 11:22] VITALS: BP 138/90; PULSE 84; O2SAT 96; BMI 42.4
== END 2024-03-20 13:12 | disposition home or self-care (01) ==
PROVIDERS: PCP Internal Medicine; Visit Provider Internal Medicine
DX: Z00.00 Encounter for general adult medical examination without abnormal findings (principal); E13.9 Other specified diabetes mellitus without complications; Z68.41 Body mass index [BMI] 40.0-44.9, adult; E66.01 Morbid (severe) obesity due to excess calories; G35 Multiple sclerosis; F33.1 Major depressive disorder, recurrent, moderate; I10 Essential (primary) hypertension; E03.8 Other specified hypothyroidism; R79.89 Other specified abnormal findings of blood chemistry; Z12.11 Encounter for screening for malignant neoplasm of colon

== ENCOUNTER 2024-04-19 08:09 | Outpatient (AMB) | payer MEDICARE, MEDICAID, SELFPAY ==
[2024-04-19 08:17] VITALS: BP 132/80; PULSE 84; TEMP 36.7; O2SAT 96; BMI 42.4
--- NOTE | 2024-04-19 08:17 | MHC.OFFWIV ---
Intake Vital Signs 04/19/24 08:17 Height 5 ft 4 in Weight 247 lb BMI 42.4 BP 132/80 Blood Pressure Location Lt brachial Position Sitting Pulse 84 Pulse Source Pulse Oximeter Temp 98.1 F Temp Source Oral Pulse Oximetry (%) 96 Oxygen Delivery Method Room Air Intake Visit Reasons: EP-congestion, fever, cough, body ache Intake Note: pt is here for congestion, fever, cough and body aches Patient Tobacco Use Status: Never used Tobacco Allergies No Known Allergies Allergy (Verified 04/19/24 08:18) Do you need a note to return to daycare/school/sports/work: Yes HPI HPI Comments History of Present Illness Details History The patient is a 53-year-old female presenting with flu like symptoms x3 days. She has been experiencing congestion and vomiting for three days, with vomiting episodes occurring once or twice. The patient managed to ingest fluids such as Pedialyte and Gatorade. She also has sinus pain but denies having ear pain. A self-reported fever reached 103?F. The patient denies any shortness of breath and reports no history of asthma or COPD. She has been taking Tylenol and Motrin to help with symptoms. The patient has a history of multiple sclerosis, which may influence treatment options. Physical Exam General: Cooperative, healthy appearing, comfortable and no acute distress Orientation/consciousness: Patient oriented x3 Limitations: No limitations Head: Normal to inspection Ears: Hearing grossly normal bilaterally, external ears normal and TM's normal bilaterally Nose: Normal external nose present, Normal nares present and No nasal discharge present Face and sinus: Normal facial exam and Sinuses tender Mouth: Normal oral and palatal mucosa present and moist mucous membranes Throat: Yes tonsils normal, Yes uvula midline. Posterior oropharynx erythema Eyes: Appearance normal, both eyes and all related structures Neck: Normal visual inspection Respiratory: Clear to auscultation bilaterally. Normal respiratory effort, able to speak in complete sentences, Actively coughing, no respiratory distress, not tachypneic, no tripod positioning and no use of accessory muscles Cardiovascular: Regular rate and rhythm. Normal S1 and S2 Skin: No rashes or lesions noted Neuro: Patient oriented x3 Extremities: Normal to inspection and Yes no clubbing, cyanosis or edema PFSH Medical History Cervical spondylosis Hypersomnia Insomnia Surgical History History of section Family History Father No problems noted. Mother Lung cancer Family/Other Multilevel scoliosis Other Mental health disorder Social History Housing: House Alcohol intake: never Patient Tobacco Use Status: Never used Tobacco e-Cigarette/Vaping Use: Never Used Second Hand Smoke Exposure: No service: No Current occupational status: disabled Cognitive needs: No Hearing needs: No Vision needs: No Review of Systems Const All systems reviewed & are unremarkable except as noted in HPI and below Physical Exam Vital Signs: Last Vital Signs Temp 98.1 F 04/19/24 08:17 Pulse 84 04/19/24 08:17 BP 132/80 04/19/24 08:17 Pulse Ox 96 04/19/24 08:17 Oxygen Delivery Method Room Air 04/19/24 08:17 BMI result Body Mass Index 42.4 Assessment & Plan Assessment & Plan (1) Acute viral syndrome: Code(s): B34.9 - Viral infection, unspecified Plan: VSS, pt well appearing and PE unremarkable. Influenza, COVID-19, and Respiratory Syncytial Virus testing will be conducted, and results will guide the consideration of Tamiflu treatment. Continuation of Tylenol and Motrin is advised for symptomatic management, alongside a suggested nighttime cough suppressant and a decongestant with an antihistamine for congestion relief. The patient was advised to stay hydrated with electrolyte solutions and was encouraged to consult a pharmacist regarding potential drug interactions. We will contact the patient with test results, after which she can make an informed decision regarding starting Tamiflu. Patient was informed and verbally consented to the use of an ambient scribe for clinic note documentation during this visit Orders: Orders SARS-CoV2/FLU/RSV Today R09.89 - Other specified symptoms and signs involving the circulatory and respiratory systems Medications: New benzonatate 200 mg PO BEDTIME PRN 10 caps 0RF cough Coding Level of Care Code Est Pt Level 3 (10058) Diagnoses Acute viral syndrome B34.9
== END 2024-04-19 09:04 | disposition home or self-care (01) ==
PROVIDERS: PCP Internal Medicine; Visit Provider Physician Assistant
DX: B34.9 Viral infection, unspecified (principal)

== ENCOUNTER 2024-04-19 08:09 | Outpatient (REF) | payer MEDICARE, SELFPAY ==
[2024-04-19 12:30] LABS: Influenza A PCR POSITIVE (Negative); Influenza B PCR NEGATIVE (Negative); Resp Syncy Virus RNA Qual PCR NEGATIVE (Negative); SARS COV2 PCR INHOUSE NEGATIVE (Negative)
== END 2024-04-19 08:10 | disposition home or self-care (01) ==
LOC: HO.LAB 08:09
PROVIDERS: PCP Internal Medicine; Visit Provider Physician Assistant
DX: B34.9 Viral infection, unspecified (principal); R09.89 Other specified symptoms and signs involving the circulatory and respiratory systems; R50.9 Fever, unspecified
CPT/HCPCS: 0241U; 99212

== ENCOUNTER 2024-08-28 09:52 | Outpatient (REF) | payer MEDICARE, MEDICAID, SELFPAY | END 2024-08-28 09:53 | disposition home or self-care (01) | LOC: HO.MAMMO 09:52 | PROVIDERS: PCP Internal Medicine; Visit Provider Internal Medicine | DX: Z12.31 Encounter for screening mammogram for malignant neoplasm of breast (principal) | CPT/HCPCS: 77063; 77067 ==

== ENCOUNTER → 2024-08-28 11:30 | Outpatient (BNV) | payer MEDICARE, MEDICAID, SELFPAY | PROVIDERS: PCP Internal Medicine; Visit Provider Radiology Body Imaging | DX: Z12.31 Encounter for screening mammogram for malignant neoplasm of breast (principal) | CPT/HCPCS: 77063; 77067 ==

== ENCOUNTER 2024-12-18 11:59 | Outpatient (AMB) | payer MEDICARE, MEDICAID, SELFPAY ==
[2024-12-18 12:35] VITALS: BP 156/100; PULSE 81; RESP 16; TEMP 36.7; O2SAT 97; BMI 43.4
--- NOTE | 2024-12-18 12:35 | AM.OFFWIN_ITS ---
Intake Vital Signs 12/18/24 12:35 Height 5 ft 4 in Weight 253 lb BMI 43.4 BP 156/100 H Blood Pressure Location Lt brachial Position Sitting Respiration 16 Pulse 81 Pulse Source Pulse Oximeter Temp 98.0 F Temp Source Oral Pulse Oximetry (%) 97 Oxygen Delivery Method Room Air Intake Visit Reasons: ep pt said her bp is very high Intake Note: pt presents with concern for high blood pressure, states MS doctor from her insurance did a home visit this am and noted a high BP reading Patient Tobacco Use Status: Never used Tobacco Allergies No Known Allergies Allergy (Verified 12/18/24 12:37) Medication List - Last Reviewed 12/18/24 by Antonette Rosario MA sertraline (Zoloft) 25 mg PO DAILY Do you need a note to return to daycare/school/sports/work: No HPI ep pt said her bp is very high HPI Details History of Present Illness The patient is a 54-year-old female presenting for a follow-up visit and management of chronic conditions. Hypertension: - The patient has a diagnosis of hyperte nsion and had a high blood pressure reading in May but is not currently on any medication for it. - There is a family history of cardiovas cular disease, as her father recently underwent a triple bypass surgery. Anxiety: - The patient reports chronic nervousnes s and anxiety. - She takes sertraline, and her dose was recently increased from 25 mg to 50 mg by a different provider due to persistent feelings of sadness. Type 2 Diabetes Mellitus: - The patient's medical problem list inc ludes a diagnosis of type 2 diabetes, she has not seen PCP in a while Gaming's Palsy: - The patient reports a recent episode o f Gaming's palsy, which she described as awful but not long-lasting. Medical History: - Hypertension - Anxiety - Type 2 Diabetes Mellitus per problem l ist - History of Gaming's Palsy Medications: - Sertraline 50 mg daily for anxiety, pr escribed by another provider. Social History: - Diet: Was advised to avoid sweets, sug ar, salt, and fat. Family History: - Father with a history of cardiovascula r disease, requiring a recent triple bypass. Diagnostic Results: - Vitals: Blood pressure was noted to be high in May. Problem List - Hypertension - Anxiety - Type 2 Diabetes Mellitus - History of Gaming's Palsy Plan - Start atenolol 25 mg once daily for hy pertension. - The patient is advised to monitor her blood pressure at home and to increase the atenolol dose to two tablets daily if her blood pressure remains 140 mmHg or higher after 2-3 days. - A prescription for 30 tablets of ateno lol has been sent to the pharmacy. - Ordered fasting blood work to assess f or diabetes. - The patient has been counseled on diet margarito modifications, including avoiding sweets, sugar, salt, and fat, to manage her blood pressure and potential diabetes. - The patient is to return for a follow- up appointment in two weeks to review blood test results and her response to treatment. Review of Systems - General: No fever no chills - Neurological: No headaches no dizziness - Ear nose throat: No sore throat no hearing difficulty no ear pain - Cardiovascular: No syncope, no chest pain, no palpitations - Gastrointestinal: No nausea vomiting or diarrhea - Endocrine: No polyuria polydipsia no heat intolerance - Genitourinary: No dysuria , no blood in urine Physical Exam - General: No acute distress - HEENT: No acute findings - Neck: Supple - Respiratory system: Able to talk in f ull sentences, no audible wheeze - Cardiovascular: S1-S2 regular in rate and rhythm - Gastrointestinal: No pain - Extremities: No new findings - COGENERATION OPERATOR: Alert awake oriented x3 , use ca ne for ambulation due to diagnosis of MS - Skin: Normal turgor [facility] Medical History Cervical spondylosis Hypersomnia Insomnia Surgical History History of section Family History Father No problems noted. Mother Lung cancer Family/Other Multilevel scoliosis Other Mental health disorder Social History Housing: House Alcohol intake: never Patient Tobacco Use Status: Never used Tobacco e-Cigarette/Vaping Use: Never Used Second Hand Smoke Exposure: No service: No Current occupational status: disabled Cognitive needs: No Hearing needs: No Vision needs: No Physical Exam Vital Signs: Last Vital Signs Temp 98.0 F 12/18/24 12:35 Pulse 81 12/18/24 12:35 Resp 16 12/18/24 12:35 BP 156/100 H 12/18/24 12:35 Pulse Ox 97 12/18/24 12:35 Oxygen Delivery Method Room Air 12/18/24 12:35 BMI result Body Mass Index 43.4 Assessment & Plan Assessment & Plan (1) Uncontrolled hypertension: Code(s): I10 - Essential (primary) hypertension (2) Diabetes 1.5, managed as type 2: Code(s): E13.9 - Other specified diabetes mellitus without complications (3) Anxiety: Code(s): F41.9 - Anxiety disorder, unspecified (4) Major depression, recurrent: Code(s): F33.9 - Major depressive disorder, recurrent, unspecified Qualifiers: Active/Remission status: currently active Major depression episode severity: moderate Qualified Code(s): F33.1 - Major depressive disorder, recurrent, moderate (5) Lipid disorder: Code(s): E78.9 - Disorder of lipoprotein metabolism, unspecified (6) Other specified hypothyroidism: Code(s): E03.8 - Other specified hypothyroidism (7) Multiple sclerosis: Code(s): G35 - Multiple sclerosis (8) Morbid obesity due to excess calories: Code(s): E66.01 - Morbid (severe) obesity due to excess calories Plan Hypertension: - The patient has a diagnosis of hypertension and had a high blood pressure reading in May but is not currently on any medication for it. - There is a family history of cardiovascular disease, as her father recently underwent a triple bypass surgery. Anxiety: - The patient reports chronic nervousness and anxiety. - She takes sertraline, and her dose was recently increased from 25 mg to 50 mg by a different provider due to persistent feelings of sadness. Type 2 Diabetes Mellitus: - The patient's medical problem list includes a diagnosis of type 2 diabetes, she has not seen PCP in a while Gaming's Palsy: - The patient reports a recent episode of Gaming's palsy, which she described as awful but not long-lasting. Medical History: - Hypertension - Anxiety - Type 2 Diabetes Mellitus per problem list - History of Gaming's Palsy Medications: - Sertraline 50 mg daily for anxiety, prescribed by another provider. Social History: - Diet: Was advised to avoid sweets, sugar, salt, and fat. Family History: - Father with a history of cardiovascular disease, requiring a recent triple bypass. Diagnostic Results: - Vitals: Blood pressure was noted to be high in May. Problem List - Hypertension - Anxiety - Type 2 Diabetes Mellitus - History of Gaming's Palsy - Hypothyroidism - Lipid disorder Plan - Start atenolol 25 mg once daily for hypertension. - The patient is advised to monitor her blood pressure at home and to increase the atenolol dose to two tablets daily if her blood pressure remains 140 mmHg or higher after 2-3 days. - A prescription for 30 tablets of atenolol has been sent to the pharmacy. - Ordered fasting blood work to assess for diabetes. - The patient has been counseled on dietary modifications, including avoiding sweets, sugar, salt, and fat, to manage her blood pressure and potential diabetes. - The patient is to return for a follow-up appointment in two weeks to review blood test results and her response to treatment. Orders: Orders Comprehensive Met. Panel Today E03.8 - Other specified hypothyroidism, E13.9 - Other specified diabetes mellitus without complications, E78.9 - Disorder of lipoprotein metabolism, unspecified, F33.1 - Major depressive disorder, r ecurrent, moderate, F41.9 - Anxiety disorder, unspecified, I10 - Essential (primary) hypertension LDL Cholesterol Direct Today E03.8 - Other specified hypothyroidism, E13.9 - Other specified diabetes mellitus without complications, E78.9 - Disorder of lipoprotein metabolism, unspecified, F33.1 - Major depressive disorder, recurrent, moderate, F41.9 - Anxiety disorder, unspecified, I10 - Essential (primary) hypertension Vitamin D 25-OH (D2 and D3) Today E03.8 - Other specified hypothyroidism, E13.9 - Other specified diabetes mellitus without complications, E78.9 - Disorder of lipoprotein metabolism, unspecified, F33.1 - Major depressive disorder, recurrent, moderate, F41.9 - Anxiety disorder, unspecified, I10 - Essential (primary) hypertension Microalbumin, Random (w Creat) Today E03.8 - Other specified hypothyroidism, E13.9 - Other specified diabetes mellitus without complications, E78.9 - Disorder of lipoprotein metabolism, unspecified, F33.1 - Major depressive disorder, recurrent, moderate, F41.9 - Anxiety disorder, unspecified, I10 - Essential (primary) hypertension Hemoglobin A1c Today E03.8 - Other specified hypothyroidism, E13.9 - Other specified diabetes mellitus without complications, E78.9 - Disorder of lipoprotein metabolism, unspecified, F33.1 - Major depressive disorder, recurrent, moderate, F41.9 - Anxiety disorder, unspecified, I10 - Essential (primary) hypertension Complete Blood Count Auto Diff Today E03.8 - Other specified hypothyroidism, E13.9 - Other specified diabetes mellitus without complications, E78.9 - Disorder of lipoprotein metabolism, unspecified, F33.1 - Major depressive disorder, recurrent, moderate, F41.9 - Anxiety disorder, unspecified, I10 - Essential (primary) hypertension TSH reflex Free T4 Today E03.8 - Other specified hypothyroidism, E13.9 - Other specified diabetes mellitus without complications, E78.9 - Disorder of lipoprotein metabolism, unspecified, F33.1 - Major depressive disorder, recurrent, moderate, F41.9 - Anxiety disorder, unspecified, I10 - Essential (mike marine) hypertension Vitamin B12 Today E03.8 - Other specified hypothyroidism, E13.9 - Other specified diabetes mellitus without complications, E78.9 - Disorder of lipoprotein metabolism, unspecified, F33.1 - Major depressive disorder, recurrent, moderate, F41.9 - Anxiety disorder, unspecified, I10 - Essential (primary) hypertension Medications: New atenolol 25 mg PO DAILY 30 tabs 0RF Coding Level of Care Code Est Pt Level 4 (80243) Diagnoses Uncontrolled hypertension I10 Diabetes 1.5, managed as type 2 E13.9 Anxiety F41.9 Moderate episode of recurrent major depressive disorder F33.1 Active/Remission status: currently active Major depression episode severity: moderate Lipid disorder E78.9 Other specified hypothyroidism E03.8 Multiple sclerosis G35 Morbid obesity due to excess calories E66.01
== END 2024-12-18 12:48 | disposition home or self-care (01) ==
PROVIDERS: PCP Internal Medicine; Visit Provider Internal Medicine
DX: E13.9 Other specified diabetes mellitus without complications (principal); F33.1 Major depressive disorder, recurrent, moderate; E66.01 Morbid (severe) obesity due to excess calories; I10 Essential (primary) hypertension; G35.D Multiple sclerosis, unspecified; F41.9 Anxiety disorder, unspecified; E78.9 Disorder of lipoprotein metabolism, unspecified; E03.8 Other specified hypothyroidism

== ENCOUNTER → 2024-12-18 11:59 | Outpatient (BNVA) | payer MEDICARE, MEDICAID, SELFPAY | PROVIDERS: PCP Internal Medicine | DX: I10 Essential (primary) hypertension (principal); F41.9 Anxiety disorder, unspecified; E11.9 Type 2 diabetes mellitus without complications; G51.0 Bell's palsy; F33.1 Major depressive disorder, recurrent, moderate; E78.9 Disorder of lipoprotein metabolism, unspecified; E03.8 Other specified hypothyroidism; G35.D Multiple sclerosis, unspecified; E66.01 Morbid (severe) obesity due to excess calories; Z68.41 Body mass index [BMI] 40.0-44.9, adult | CPT/HCPCS: 99212 ==

== ENCOUNTER 2024-12-20 07:59 | Outpatient (REF) | payer MEDICARE, MEDICAID, SELFPAY ==
[2024-12-20 10:23] LABS: MANUAL DIFF FLAG NO
[2024-12-20 10:30] LABS: Hematocrit 38.6 % (37.0-47.0); Hemoglobin 12.0 g/dl (12.0-16.0); Imm Gran Abs Auto 0.03 X10*3/uL (0.00-0.03); Imm Gran Pct Auto 0.4 % (0.0-0.4); Lymphocytes Absolute Auto 3.6 X10*3/uL (1.2-4.9); Mean Corpuscular HGB Conc 31.1 g/dl (31.0-35.0); Mean Corpuscular Hemoglobin 26.2 pg (27.0-33.0); Mean Corpuscular Volume 84.3 fL (80.0-98.0); NRBC Abs Auto 0.000 X10*3/uL (0.0-0.012); NRBC Pct Auto 0.0 /100WBC (0.0-0.2); Platelet Count 264 X10*3/uL (160-400); Red Blood Count 4.58 X10*6/uL (4.20-5.50); White Blood Count 8.5 X10*3/uL (4.8-10.8)
[2024-12-20 10:58] LABS: Alanine Aminotransferase 103 U/L (0-31); Albumin Level 4.6 g/dL (3.5-5.0); Alkaline Phosphatase 85 U/L (39-117); Anion Gap 16 (12-20); Aspartate Amino Transferase 56 U/L (5-31); Blood Urea Nitrogen 19 mg/dL (9-16); Calcium 9.5 mg/dL (8.4-10.2); Carbon Dioxide 26 mmol/L (22-29); Chloride 103 mmol/L (96-108); Estimated Glomerular Filt Rate > 60; Potassium 4.1 mmol/L (3.3-5.1); Sodium 141 mmol/L (135-145); Total Protein 7.6 g/dL (6.5-8.0)
[2024-12-20 11:02] LABS: Vitamin B12 324 pg/mL (200-900)
[2024-12-20 11:20] LABS: Microalbum/Creatinine Ratio Ur 39.5 ug/mg cr (<30)
[2024-12-20 11:32] LABS: Free T4 (Free Thyroxine) 0.86 ng/dL (0.71-1.85)
[2024-12-26 15:03] LABS: Vitamin D 25-OH, D2 <4 ng/mL; Vitamin D 25-OH, D3 27 ng/mL; Vitamin D 25-OH, Total 27 ng/mL (30-100)
== END 2024-12-20 08:00 | disposition home or self-care (01) ==
LOC: HO.HMGCLDS 07:59
PROVIDERS: PCP Internal Medicine; Visit Provider Internal Medicine
DX: E13.9 Other specified diabetes mellitus without complications (principal); F33.1 Major depressive disorder, recurrent, moderate; E78.9 Disorder of lipoprotein metabolism, unspecified; E03.8 Other specified hypothyroidism; F41.9 Anxiety disorder, unspecified; I10 Essential (primary) hypertension; Z13.21 Encounter for screening for nutritional disorder
CPT/HCPCS: 36415; 80053; 82043; 82306; 82570; 82607; 83036; 83721; 84439; 84443; 85025

== ENCOUNTER 2025-01-03 09:00 | Outpatient (AMB) | payer MEDICARE, MEDICAID, SELFPAY ==
[2025-01-03 09:18] VITALS: BP 132/90; PULSE 86; O2SAT 99; BMI 44.3
--- NOTE | 2025-01-03 09:18 | A.OFFPC_ITS ---
Vital Signs 01/03/25 09:18 Height 5 ft 4 in Weight 258 lb BMI 44.3 BP 132/90 H Blood Pressure Location Lt brachial Position Sitting Pulse 86 Pulse Source Pulse Oximeter Pulse Oximetry (%) 99 Intake Visit Reasons: 2 weeks f/up Belt Picker Required: No Accompanied by: Self / Same As Patient Allergies No Known Allergies Allergy (Verified 01/03/25 09:18) Medication List - Last Reconciled 01/03/25 by Keyon Sharp MD atenolol 25 mg PO DAILY sertraline 50 mg PO DAILY Tobacco use date assessed: 03/20/24 Dental Screening Dental Screen Date: 03/20/24 HPI HPI Comments History of Present Illness Details History of Present Illness The patient is a 54 year old individual presenting for blood pressure monitoring. Hypertension: - The patient was started on an antihype rtensive medication (stated as Adrenaline 25 mg) a few days ago after presenting with a blood pressure of 156/100 mmHg. - Today's in-office blood pressure was 1 32/90 mmHg, and the patient reports home readings around 130/80 mmHg. Type 2 Diabetes Mellitus: - Recent lab results show an HbA1c of 7. 6%, an increase from 6.6% in March of this year. Hyperlipidemia: - Recent labs revealed an LDL cholestero l level of 187 mg/dL. Hypothyroidism: - Recent lab results indicated abnormal thyroid function. - Hypothyroidism is noted in the patient 's medical history, but the patient reports not currently taking any medication for it. Vitamin D Deficiency: - Recent labs showed low vitamin D level s. - The patient reports a chronic history of low vitamin D Multiple Sclerosis: - The patient describes symptoms of MS a s awful and is taking an unspecified pill for the condition, thru Neuro Morbid Obesity : - The patient reports having gained weig ht and is trying to stay active by walking at the gym. - The patient notes being less active si nce the loss of two pet dogs. Elevated liver enzymes: - Recent lab work showed that the liver enzymes were elevated. Medical History: - Multiple Sclerosis - Vitamin D deficiency, reported as a ch ronic problem - Hypothyroidism, untreated - Depression Social History: - Exercise: Reports walking a lot at the gym. Was previously very active with two pet Dillard Retrievers that the patient has since lost, leading to a decrease in activity. - Nutrition: Reports eating Cream of Whe at and trying to consume a lot of milk. Diagnostic Results: - Vitals: Blood pressure in office was 1 32/90 mmHg, with home readings reported as 130/80 mmHg. - Labs: Recent results showed normal anson ctrolytes and kidney function, HbA1c of 7.6% (up from 6.6% in March), LDL of 187 mg/dL, elevated liver enzymes, low vitamin D, and an abnormal thyroid panel. [facility] Medical History Cervical spondylosis Hypersomnia Insomnia Surgical History History of section Family History (Reviewed 01/03/25 @ 10: by Keyon Sharp MD) Father No problems noted. Mother Lung cancer Family/Other Multilevel scoliosis Other Mental health disorder Social History Housing: House Alcohol intake: never Patient Tobacco Use Status: Never used Tobacco e-Cigarette/Vaping Use: Never Used Second Hand Smoke Exposure: No service: No Current occupational status: disabled Cognitive needs: No Hearing needs: No Vision needs: No Questionnaire PHQ-9 Over the last 2 weeks, how often have you been bothered by any of the following problems? [id number] - PHQ-9 Billing: Patient declined-do not bill Source: Developed by Drs. Jagdish Giron, Farheen Martin, Fercho Merrill and colleagues, with an educational bran from [employer]. Thrive Questionnaire Date Thrive assessed: 01/03/25 I am a: Patient What is your living situation today?: I have a steady place to live Within the past 12 months, did the food you bought not last and you didn't have the money to get more?: Never true Within the past 12 months, did you worry whether your food would run out before you got money to buy more?: Never true Do you have trouble paying for medicines?: I choose not to answer this question Do you have trouble getting transportation to medical appointments?: I choose not to answer this question Do you have trouble paying your heating and electricity bill?: I choose not to answer this question Do you have trouble taking care of your child, family member or friend?: I choose not to answer this question Do you have trouble with day-to-day activities such as bathing, preparing meals, shopping, managing finances, etc.?: I choose not to answer this question Are you currently unemployed and looking for a job?: I choose not to answer this question Are you interested in more education?: I choose not to answer this question Please select the resources that you would like help with: None Currently or been in a relationship where the following occur: I choose not to answer THRIVE Score: 0 AUDIT C Alcohol Use Questionnaire (AUDIT-C) 1. How often do you have a drink containing alcohol?: Never 3. How often do you have six or more drinks on one occasion?: Never Total Score: 0 Score Reviewed/Action Taken: Yes SCOTT-7 AMB Questionnaire SCOTT-7 Date SCOTT - 7 assessed: 01/03/25 (PATIENT DECLINED) Source: Developed by Drs. Jagdish Giron, Farheen Martin, Fercho Merrill and colleagues, with an educational bran from [employer]. Review of Systems Narrative Review of Systems - Neurological: No headaches no dizziness - Ear nose throat: No sore throat no hearing difficulty no ear pain, no fever no chills - Cardiovascular: No syncope, no chest pain, no palpitations - Gastrointestinal: No nausea vomiting or diarrhea Physical exam (Primary Care) Vital Signs: Last Vital Signs Pulse 86 01/03/25 09:18 BP 132/90 H 01/03/25 09:18 Pulse Ox 99 01/03/25 09:18 BMI result Body Mass Index 44.3 Tobacco/Smoking Status: Tobacco use Status Tobacco use date assessed 03/20/24 01/03/25 09:21 Patient Tobacco Use Status Never used Tobacco 01/03/25 09:21 e-Cigarette/Vaping Use Never Used 01/03/25 09:21 PHQ-9: PHQ-9 Score PHQ-9: Total score 6 01/03/25 09:27 Thrive Assessment: Date of Thrive Assessment Date Thrive assessed 01/03/25 01/03/25 09:21 Currently or been in a relationship where the following occur: I choose not to answer Narrative Physical Exam General: No acute distress HEENT: No acute findings Neck: Supple Respiratory system: Lungs are clear Cardiovascular: S1-S2 regular in rate and rhythm, heart is fine Gastrointestinal: No pain Extremities: No new findings PARTS FACILITATOR: Alert awake oriented x3 motor intact, use cane for balance Skin: Normal turgor Coding Level of Care Code Complex visit Add On G2211 Diagnoses Hypertension, essential I10 Other specified hypothyroidism E03.8 Diabetes 1.5, managed as type 2 E13.9 Anxiety F41.9 Moderate episode of recurrent major depressive disorder F33.1 Active/Remission status: currently active Major depression episode severity: moderate Lipid disorder E78.9 Multiple sclerosis G35 Morbid obesity due to excess calories E66.01 Assessment & Plan Assessment & Plan (1) Hypertension, essential: Code(s): I10 - Essential (primary) hypertension Category: Medical (2) Other specified hypothyroidism: Code(s): E03.8 - Other specified hypothyroidism Category: Medical (3) Diabetes 1.5, managed as type 2: Code(s): E13.9 - Other specified diabetes mellitus without complications Category: Medical (4) Anxiety: Code(s): F41.9 - Anxiety disorder, unspecified Category: Medical (5) Major depression, recurrent: Code(s): F33.9 - Major depressive disorder, recurrent, unspecified Category: Medical Qualifiers: Active/Remission status: currently active Major depression episode severity: moderate Qualified Code(s): F33.1 - Major depressive disorder, recurrent, moderate (6) Lipid disorder: Code(s): E78.9 - Disorder of lipoprotein metabolism, unspecified Category: Medical (7) Multiple sclerosis: Code(s): G35 - Multiple sclerosis Category: Medical (8) Morbid obesity due to excess calories: Code(s): E66.01 - Morbid (severe) obesity due to excess calories Category: Medical Plan Problem List - Hypertension - Type 2 Diabetes Mellitus - Hyperlipidemia - Hypothyroidism - Vitamin D Deficiency - Multiple Sclerosis - Obesity - Elevated liver enzymes - Depression Plan - Will start levothyroxine 50 mcg daily for hypothyroidism. The patient was instructed to take it on an empty stomach with water, 15 minutes before other morning medications. - Will begin vitamin D supplementation for vitamin D deficiency. - Management of hyperlipidemia will be deferred for a couple of months, with a plan to add a cholesterol medication after re-evaluating thyroid function. - For diabetes management, the current plan is to focus on diet control without adding new medications, with the hope that treating hypothyroidism will also improve glycemic control. - The patient will continue home blood pressure monitoring. - Repeat blood tests, including a thyroid panel, are ordered to be completed in two months. - Follow-up is scheduled in three months to re-evaluate and check blood sugar. Orders: Orders TSH reflex Free T4 Today E03.8 - Other specified hypothyroidism Medications: New levothyroxine (Synthroid) 50 mcg PO DAILY 90 tabs 0RF cholecalciferol (vitamin D3) 125 mcg PO DAILY 90 caps 0RF
== END 2025-01-03 09:39 | disposition home or self-care (01) ==
LOC: HO.HMCC 09:01
PROVIDERS: PCP Internal Medicine; Visit Provider Internal Medicine
DX: E13.9 Other specified diabetes mellitus without complications (principal); F33.1 Major depressive disorder, recurrent, moderate; E66.01 Morbid (severe) obesity due to excess calories; Z68.41 Body mass index [BMI] 40.0-44.9, adult; I10 Essential (primary) hypertension; E03.8 Other specified hypothyroidism; F41.9 Anxiety disorder, unspecified; E78.9 Disorder of lipoprotein metabolism, unspecified; G35.D Multiple sclerosis, unspecified

== ENCOUNTER → 2025-01-03 09:00 | Outpatient (BNVA) | payer MEDICARE, MEDICAID, SELFPAY | PROVIDERS: PCP Internal Medicine; Visit Provider Internal Medicine | DX: I10 Essential (primary) hypertension (principal); E78.5 Hyperlipidemia, unspecified; E55.9 Vitamin D deficiency, unspecified; G35.D Multiple sclerosis, unspecified; E66.01 Morbid (severe) obesity due to excess calories; R74.8 Abnormal levels of other serum enzymes; E03.8 Other specified hypothyroidism; E13.9 Other specified diabetes mellitus without complications; F41.9 Anxiety disorder, unspecified; F33.1 Major depressive disorder, recurrent, moderate; Z68.41 Body mass index [BMI] 40.0-44.9, adult | CPT/HCPCS: 99212 ==